=== PATIENT | female | born 1960 ===

== ENCOUNTER 2024-12-20 05:50 | Day surgery (SDC) | payer OTHER ==
[2024-12-11 09:43] LABS: PH,URINE 6.5 (5.0-8.0); URINE APPEARANCE Clear; URINE BILIRRUBIN Negative (NEGATIVE); URINE BLOOD Negative; URINE COLOR Yellow; URINE GLUCOSE Negative (NEGATIVE); URINE KETONE Negative (NEGATIVE); URINE LEUKOCYTE Moderate; URINE NITRATE Negative; URINE PROTEIN Negative (NEGATIVE); URINE UROBILINOGEN 0.2 E.U./dl
[2024-12-11 09:46] LABS: HEMATOCRIT 43.7 % (36.0-45.00); HEMOGLOBIN 14.8 g/dL (12.0-15.00); MEAN CELL VOLUME 84.1 fL (80.00-100.00); MEAN CORPUSCULAR HEMOGLOBIN 28.5 pg (27.00-32.0); MEAN CORPUSCULAR HGB CONC 33.9 g/dl (32.0-36.0); PLATELET COUNT 278 K/uL (150-450); RED BLOOD COUNT 5.19 M/uL (4.00-6.00); RED CELL DISTRIBUTION WIDTH 14.9 % (11.5-14.5)
[2024-12-11 09:47] LABS: URINE BACTERIA 152.9 uL (0.0-1933); URINE EPITHELIAL CELLS 13.1 uL (0.0-38.8); URINE RBC 2.5 uL (0.0-20.8); URINE WBC 50.4 uL (0.0-23.2)
[2024-12-11 09:59] VITALS: BP 133/73
[2024-12-11 10:10] LABS: INR 1.79; PARTIAL THROMBOPLASTIN TIME 36.8 SECONDS (22.0-34.0)
[2024-12-11 10:11] LABS: PROTHROMBIN TIME 18.7 SECONDS (9.0-11.5)
[2024-12-11 10:37] LABS: ALBUMIN 4.4 gm/dL (3.4-5.0); CALCIUM 9.9 mg/dL (8.5-10.1); CREATININE SERUM 0.78 mg/dL (0.55-1.02); GFR 74.35; PHOSPHOROUS 3.7 mg/dL (2.5-4.9); POTASSIUM 4.5 mEq/L (3.5-5.1)
[~2024-12-20] VITALS: Ht 149.9 cm; Wt 63.5 kg
[~2024-12-20 05:50] MED LIST changes: -CEPHALEXIN500 M1 PO; -CIPROFLOXACIN2.5 ML OTIC
[2024-12-20] MEDS ORDERED: CEFAZOLIN SODIUM 1,000 MG VIAL ONE (11:37)
[2024-12-20] MEDS ORDERED: EPINEPHRINE HCL/PF 1 MG/ML AMPUL ONE (11:45)
[2024-12-20] MEDS ORDERED: LIDOCAINE HCL 1%/EPINEPHRINE 20ML VIAL IJ ONE (11:45)
[2024-12-20] MEDS ORDERED: POVIDONE-IODINE 118 ML BOTT TOP ONE (11:45)
[2024-12-20] MEDS ORDERED: DEXAMETHASONE SODIUM PHOSPHATE 4 MG/ML VIAL ONE (13:06)
[2024-12-20] MEDS ORDERED: CIPROFLOXACIN2.5 ML OTIC (13:38)
[2024-12-20] MEDS ORDERED: CEPHALEXIN500 M1 PO (13:38)
== END 2024-12-20 15:55 | disposition home or self-care (01) ==
LOC: CIR.AMB 05:50
PROVIDERS: ATTEND Otolaryngology Otology & Neurotology
DX: H72.01 Central perforation of tympanic membrane, right ear (principal); H90.11 Conductive hearing loss, unilateral, right ear, with unrestricted hearing on the contralateral side; Z88.6 Allergy status to analgesic agent; E03.8 Other specified hypothyroidism; M19.90 Unspecified osteoarthritis, unspecified site; K29.70 Gastritis, unspecified, without bleeding; K76.0 Fatty (change of) liver, not elsewhere classified; R42 Dizziness and giddiness

== ENCOUNTER → 2024-12-20 | Outpatient (CLI) | payer OTHER ==
[~2024-12-20] MED LIST: CEPHALEXIN500 M1 PO; CIPROFLOXACIN2.5 ML OTIC; LIPITOR40 M1 PO; SYNTHROID75 MCG PO; WARFARIN SODIUM3 MG PO
[2024-12-20 09:04] LABS: INR 1.13; PARTIAL THROMBOPLASTIN TIME 27.8 SECONDS (22.0-34.0); PROTHROMBIN TIME 12.2 SECONDS (9.0-11.5)
== END | disposition home or self-care (01) ==
LOC: LAB 08:42
PROVIDERS: ATTEND Otolaryngology Otology & Neurotology
DX: D68.9 Coagulation defect, unspecified (principal)